=== PATIENT | male | born 1975 | race Caucasian/White ===

== ENCOUNTER 2016-08-01 15:21 | Emergency (ER) | payer BC, OTHER ==
[~2016-08-01] VITALS: Ht 162.6 cm; Wt 89.0 kg
[2016-08-01 15:29] VITALS: Ht 162.6 cm; Wt 89.0 kg
[2016-08-01] MEDS ORDERED: ONDANSETRON (ODT) 4 MG TAB ODT STA (16:46)
[2016-08-01] MEDS ORDERED: HYDROCODONE/APAP (10/325) TAB PO ONE (17:00)
--- NOTE | 2016-08-01 18:01 | RADRPT ---
PROCEDURE: XR Right Ankle. CLINICAL INDICATION: Trauma due to a fall. Right ankle pain. TECHNIQUE: 3 views. Frontal, lateral, and oblique. COMPARISON: None. FINDINGS: There is an acute bimalleolar fracture with a nondisplaced fracture of the distal tip of the fibula and a large vertical fracture of the medial malleolus with medial superior displacement. There is n o other fracture and there is no dislocation. There is diffuse soft tissue swelling. There is a plantar calcaneal spur. There is an os trigonum. There is no lytic or blastic lesion. There is no radiopaque foreign body. IMPRESSION: 1. Acute bimalleolar fracture. 2. Diffuse soft tissue swelling. 3. Os trigonum, a normal variant. RPTAT: QQ .Alok Gandhi MD, MD Date Time Electronically viewed and signed by .Alok Gandhi MD, MD on 08/01/2016 18:01 .R/
[2016-08-01] MEDS ORDERED: HYDR-902 PO (18:16)
[2016-08-01 19:08] VITALS: BP 122/78; PULSE 78; RESP 20; TEMP 98.3
--- NOTE | 2016-08-01 20:00 | ERD ---
ER Documentation Chief Complaint Date/Time DATE: 08/01/16 TIME: 19:57 Chief Complaint right ankle pain,horse fell on it HPI Patient is a 40-year-old male with diabetes who presents with ankle pain. The patient said that it is worse spell on his right ankle at 2:30 PM. He has right ankle pain and swelling. He is unable to walk on it. He has had no treatment as of yet and came right to the emergency department. ROS All systems reviewed and are negative except as per history of present illness. Medications Home Meds Active Scripts Hydrocodone/Acetaminophen ([place] 10-325 Tablet) 1 Each Tablet, 1 TAB PO Q6H Y for PAIN, #12 TAB Prov:BRENDA LEE MD 08/01/16 PMhx/Soc History of Surgery: No Anesthesia Reaction: No Hx Neurological Disorder: No Hx Respiratory Disorders: No Hx Cardiac Disorders: No Hx Psychiatric Problems: No Hx Miscellaneous Medical Probl: Yes (DM) Hx Alcohol Use: Yes Hx Substance Use: No Hx Tobacco Use: No Smoking Status: Never smoker FmHx Family History: diabetes Physical Exam Vitals Vital Signs Date Time Temp Pulse Resp B/P Pulse Ox O2 Delivery O2 Flow Rate FiO2 08/01/16 19:08 98.3 78 20 122/78 99 08/01/16 15:29 98.1 99 20 136/80 99 Physical Exam Const: Mild distress secondary to pain Head: Atraumatic Eyes: Normal Conjunctiva ENT: Normal External Ears, Nose and Mouth. Neck: Full range of motion..~ No meningismus. Resp: Clear to auscultation bilaterally Cardio: Regular rate and rhythm, no murmurs Abd: Soft, non tender, non distended. Normal bowel sounds Skin: No petechiae or rashes Back: No midline or flank tenderness Ext: Bilateral malleolus swelling with tenderness to palpation Neur: Awake and alert Psych: Normal Mood and Affect Results 24 hrs Current Medications Medications (Trade) Dose Ordered Sig/Joseline Route PRN Reason Start Time Stop Time Status Last Admin Dose Admin Acetaminophen/ Hydrocodone Bitart ([place] (10/325)) 1 tab ONCE ONCE PO 08/01/16 17:00 08/01/16 17:01 DC 08/01/16 16:58 Ondansetron HCl (Zofran Odt) 4 mg ONCE STAT ODT 08/01/16 16:46 08/01/16 16:47 DC 08/01/16 16:57 Procedures/MDM X-ray Ankle 3V Interpreted by me: Bones: Bimalleolar fracture Joints: No dislocation Smoking Cessation Therapy: Pt. was lectured for greater than 3 minutes on the health risks of continued smoking and the benefits of cessation. Splint Note Type: Sugar tong and posterior Location: Right lower extremity Indication: Bimalleolar fracture Splint Assessment: Neurovascularly intact post splint placement with good fit. Patient is a 40-year-old male with diabetes who presents with a bimalleolar ankle fracture. There was no displacement or dislocation. The patient was placed in a splint and given crutches. He was given [place] for pain. He will need to follow-up with Dr. Hoffman from orthopedic surgery or the orthopedic surgeon of his choice and will likely need orthopedic fixation. The patient be given a prescription for [place] for pain. He can return for any worsening symptoms. He has no other traumatic injury as a horse only fell on his ankle. Departure Diagnosis: Primary Impression: Ankle fracture, bimalleolar, closed Encounter type: initial encounter Laterality: right Qualified Code: S82.841A - Ankle fracture, bimalleolar, closed, right, initial encounter Condition: Fair Patient Instructions: Treating Ankle Fractures Referrals: REBECCA HOFFMAN MD Additional Instructions: Specialist:Usted tiene eunice condicin mdica que requiere que kirk a un especialista dentro de los prximos 1-2 grande.POR FAVOR,CON ALVAREZ SEGUIMIENTO DE PRIMARIA PHSICIAN refferal. SI USTED NO TIENE UN MDICO GENERAL Y / O USTED NO PUEDE PAGAR rita a un mdico,los siguientes matthew RECURSOS sido suministrado a usted. ES ALVAREZ RESPONSABILIDAD PARA SER VISTOS POR EL ESPECIALISTA: BRENDA LEE MD Aug 01, 2016 20:00
== END 2016-08-01 19:10 | disposition home or self-care (01) ==
LOC: FTE 15:21
DX: S82.841A Displaced bimalleolar fracture of right lower leg, initial encounter for closed fracture (principal); E11.9 Type 2 diabetes mellitus without complications; W55.12XA Struck by horse, initial encounter; Y92.9 Unspecified place or not applicable